=== PATIENT | female | born 1980 | race Caucasian/White ===

== ENCOUNTER 2024-11-30 06:17 | Day surgery (SDC) | payer BC, SELFPAY | END 2024-11-30 11:01 | disposition home or self-care (01) | LOC: GI 06:17 | PROVIDERS: ATTENDING PHYSICIAN Internal Medicine Gastroenterology | DX: Z12.11 Encounter for screening for malignant neoplasm of colon (principal); D12.2 Benign neoplasm of ascending colon; D12.8 Benign neoplasm of rectum | CPT/HCPCS: 45380; 88305 ==